=== PATIENT | male | born 2000 | race Caucasian/White ===

== ENCOUNTER 2021-10-07 22:50 | Emergency (ER) | payer OTHER ==
[~2021-10-07] VITALS: Ht 182.9 cm; Wt 79.4 kg
[2021-10-07 23:17] VITALS: BP 131/76
--- NOTE | 2021-10-08 00:21 | NUR ---
PT TAKEN TO BED 5
--- NOTE | 2021-10-08 00:25 | NUR ---
received in bed 5 with c/o syncopal episode after smoking marijuana. HX:MONO NKDA
--- NOTE | 2021-10-08 01:15 | NUR ---
Dr. Camargo examining patient.
[2021-10-08] MEDS ORDERED: ACETAMINOPHEN 325 MG TAB PO ONE (01:25)
[2021-10-08] MEDS ORDERED: ACETAMINOPHEN 325 MG TAB ONE (01:27)
--- NOTE | 2021-10-08 01:31 | NUR ---
LAB AT BEDSIDE
[2021-10-08 01:39] LABS: BASOPHILS % (AUTO) 0.5 % (0.0-2.0); EOSINOPHILS # (AUTO) 0.2 K/uL (0-0.4); EOSINOPHILS % (AUTO) 1.8 % (0.0-4.0); HEMATOCRIT 42.6 % (36-52); HEMOGLOBIN 14.3 g/dL (12.0-18.0); LYMPHOCYTES # (AUTO) 1.9 K/uL (2.0-11.5); LYMPHOCYTES % (AUTO) 19.4 % (20.5-51.1); MEAN CORPUSCULAR HEMOGLOBIN 28 pg (27-31); MEAN CORPUSCULAR HGB CONC 34 g/dL (33-37); MEAN CORPUSCULAR VOLUME 81.6 fL (80-94); MONOCYTES # (AUTO) 0.6 K/uL (0.8-1.0); NEUTROPHILS % (AUTO) 72.3 % (42.2-75.2); PLATELET COUNT (AUTO) 278 K/uL (140-450); RED BLOOD CELL COUNT(AUTO) 5.21 MIL/uL (4.20-6.10); RED CELL DISTRIBUTION WIDTH 13.1 % (11.6-13.7); WHITE BLOOD COUNT (AUTO) 9.7 K/uL (4.8-10.8)
[2021-10-08 01:40] LABS: APPEARANCE,URINE CLEAR (CLEAR); BILIRUBIN,URINE NEGATIVE (NEGATIVE); BLOOD, URINE NEGATIVE (NEGATIVE); COLOR,URINE YELLOW (YELLOW); LEUKOCYTE ESTERASE ,URINE NEGATIVE (NEGATIVE); NITRITE, URINE NEGATIVE (NEGATIVE); UGLUCOSE NEGATIVE (NEGATIVE)
--- NOTE | 2021-10-08 01:43 | NUR ---
X-Ray at bedside.
[2021-10-08 01:56] LABS: BARBITURATE, URINE NEGATIVE ng/ml (NEG <=200); BENZODIAZEPINE, URINE NEGATIVE ng/mL (NEG <=200); CANNABINOID, URINE POSITIVE ng/mL (NEG <=50); COCAINE, URINE NEGATIVE ng/mL (NEG <=300); OPIATE, URINE NEGATIVE ng/mL (NEG <=2000); PHENCYCLIDINE SCREEN,URINE NEGATIVE ng/mL (NEG <=25)
--- NOTE | 2021-10-08 02:00 | NUR ---
PT RETURN FROM RADIOLOGY
[2021-10-08 02:17] LABS: ANION GAP 13.9 (8-16); CARBON DIOXIDE 25.8 mmol/L (21-32); CHLORIDE 106 mmol/L (98-107); GLUCOSE 91 mg/dL (74-106); POTASSIUM 4.7 mmol/L (3.5-5.1); SODIUM SERUM 141 mmol/L (136-145); UREA NITROGEN, BLOOD 19 mg/dL (7-18)
[2021-10-08 02:18] LABS: GFR ARICAN-AMERICAN 121 mL/min (>90)
[2021-10-08 02:19] LABS: ALBUMIN 4.4 g/dL (3.4-5.0); ASPARTATE AMINOTRANSFERASE 16 U/L (15-37); TOTAL BILIRUBIN 0.8 mg/dL (0.0-1.0)
[2021-10-08] MEDS ORDERED: ACET-10509 PO (03:38)
[2021-10-08 03:54] VITALS: BP 134/68
== END 2021-10-08 03:54 | disposition home or self-care (01) ==
LOC: MED 22:50
DX: S09.90XA Unspecified injury of head, initial encounter (principal); R55 Syncope and collapse; W22.8XXA Striking against or struck by other objects, initial encounter; Y93.89 Activity, other specified; Y92.89 Other specified places as the place of occurrence of the external cause; Y99.8 Other external cause status
CPT/HCPCS: 36415; 70450; 71045; 72125; 80053; 80305; 81003; 85025; 93005; 99285; G0482; Q0092